=== PATIENT | female | born 2000 | race African-American/Black ===

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

== ENCOUNTER 2019-02-20 13:54 | Emergency (ER) | payer SELFPAY ==
[~2019-02-20] VITALS: Ht 175.3 cm; Wt 113.6 kg
[2019-02-20 14:20] VITALS: BP 136/74; TEMP 98.2
[2019-02-20 17:44] VITALS: PULSE 77
== END 2019-02-20 17:48 | disposition home or self-care (01) ==
LOC: COL.ER 13:54
DX: S86.911A Strain of unspecified muscle(s) and tendon(s) at lower leg level, right leg, initial encounter (principal); X50.0XXA Overexertion from strenuous movement or load, initial encounter; Y92.310 Basketball court as the place of occurrence of the external cause; Y93.67 Activity, basketball
CPT/HCPCS: L1846

== ENCOUNTER 2021-05-30 10:48 | Emergency (ER) | payer SELFPAY ==
[~2021-05-30] VITALS: Ht 177.8 cm; Wt 113.6 kg
[2021-05-30 10:59] VITALS: TEMP 98.3
[2021-05-30] MEDS ORDERED: PHENERGAN 25 TA25 MG PO (12:53)
[2021-05-30 13:10] VITALS: BP 110/73; PULSE 97
== END 2021-05-30 13:10 | disposition home or self-care (01) ==
LOC: COL.ER 10:48
DX: U07.1 COVID-19 (principal)
CPT/HCPCS: J1885; J2550

== ENCOUNTER 2022-01-30 19:32 | Emergency (ER) | payer OTHER ==
[~2022-01-30] VITALS: Ht 177.8 cm; Wt 122.7 kg
[~2022-01-30 19:32] MED LIST changes: +PHENERGAN 25 TA25 MG PO
[2022-01-30 19:40] VITALS: TEMP 97.5
[2022-01-30] MEDS ORDERED: FLEXERIL 1010 MG/TAB PO (22:33)
[2022-01-30 22:38] VITALS: BP 146/78; PULSE 88
== END 2022-01-30 22:40 | disposition home or self-care (01) ==
LOC: COL.ER 19:32
DX: S39.012A Strain of muscle, fascia and tendon of lower back, initial encounter (principal); S80.12XA Contusion of left lower leg, initial encounter; S80.11XA Contusion of right lower leg, initial encounter; V43.52XA Car driver injured in collision with other type car in traffic accident, initial encounter; Y92.410 Unspecified street and highway as the place of occurrence of the external cause